=== PATIENT | male | born 1985 | race Caucasian/White ===

== ENCOUNTER 2024-02-18 00:49 | Emergency (ER) | payer MEDICAID, SELFPAY ==
[2024-02-18 01:02] VITALS: BP 132/72; PULSE 98; RESP 18; TEMP 36.7; O2SAT 96
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
[2024-02-18 01:29] VITALS: BP 131/79; PULSE 68; RESP 15; O2SAT 100
[2024-02-18] MEDS: ACETAMINOPHEN 500 MG TABLET 1000 MG PO (01:29)
[2024-02-18] MEDS: TETANUS,DIPHTHERIA,AC PERTUSSIS ADULT (0.5 ML) BOOSTRIX IM (01:32)
== END 2024-02-18 02:04 | disposition home or self-care (01) ==
PROVIDERS: Emergency Provider Student in an Organized Health Care Education/Training Program; PCP Family Medicine
DX: S01.01XA Laceration without foreign body of scalp, initial encounter (principal); W22.8XXA Striking against or struck by other objects, initial encounter; Z23 Encounter for immunization
CPT/HCPCS: 12001; 90471; 90715; 99283; A9270